=== PATIENT | male | born 1965 | race Hispanic/Latino ===

== ENCOUNTER 2022-08-02 11:21 | Outpatient (CLI) | payer SELFPAY | END 2022-08-02 11:22 | disposition home or self-care (01) | LOC: BICRAD 11:21 | PROVIDERS: ATTEND Family Medicine | DX: F17.200 Nicotine dependence, unspecified, uncomplicated (principal) | CPT/HCPCS: 71045 ==

== ENCOUNTER 2023-09-01 10:25 | Outpatient (CLI) | payer OTHER | END 2023-09-01 10:26 | disposition home or self-care (01) | LOC: BICCT 10:25 | PROVIDERS: ATTEND Family Medicine | DX: Z12.2 Encounter for screening for malignant neoplasm of respiratory organs (principal); F17.210 Nicotine dependence, cigarettes, uncomplicated | CPT/HCPCS: 71271 ==